=== PATIENT | female | born 2000 | race Caucasian/White ===

== ENCOUNTER 2023-04-09 02:28 | Emergency (ER) | payer SELFPAY ==
[~2023-04-09] VITALS: Ht 154.9 cm; Wt 59.0 kg
[2023-04-09 04:05] LABS: APPEARANCE,URINE CLEAR (CLEAR); BILIRUBIN,URINE NEGATIVE (NEGATIVE); BLOOD, URINE 3+ Ery/uL (NEGATIVE); COLOR,URINE YELLOW (YELLOW); KETONES,URINE 3+ mg/dL (NEGATIVE); LEUKOCYTE ESTERASE ,URINE TRACE (NEGATIVE); NITRITE, URINE NEGATIVE (NEGATIVE); PREGNANCY TEST URINE QUAL NEGATIVE (NEGATIVE); PROTEIN,URINE NEGATIVE (NEGATIVE); UGLUCOSE NEGATIVE (NEGATIVE); UROBILINOGEN,URINE 0.2 EU/dL (0.2)
[2023-04-09 04:06] LABS: ADD URINE CULTURE NO; BACTERIA,URINE Rare /HPF (None Seen); SQUAMOUS EPITHELIAL CELL,UR Few /HPF (None Seen)
[2023-04-09] MEDS ORDERED: NITR100C6 PO (04:15)
[2023-04-09] MEDS ORDERED: NITROFURANTOIN/MONOHYDRATE MACROCRYSTALS 100 MG CAPSULE ONE (04:15)
[2023-04-09] MEDS ORDERED: NITROFURANTOIN/MONOHYDRATE MACROCRYSTALS 100 MG CAPSULE PO ONE (04:30)
[2023-04-09 04:33] VITALS: BP 121/74; TEMP 98.4; O2SAT 100
== END 2023-04-09 04:34 | disposition home or self-care (01) ==
LOC: ER 02:39
DX: N39.0 Urinary tract infection, site not specified (principal); Z79.899 Other long term (current) drug therapy
CPT/HCPCS: 81001; 84703-TC

== ENCOUNTER 2023-07-04 23:51 | Emergency (ER) | payer MEDICAID ==
[~2023-07-04] VITALS: Ht 154.9 cm; Wt 61.2 kg
[~2023-07-04 23:51] MED LIST: NITR100C6 PO
[2023-07-05 00:59] VITALS: BP 118/72; TEMP 97.2
[2023-07-05] MEDS ORDERED: ACETAMINOPHEN ES 500 MG TABLET PO ONE (01:30)
[2023-07-05] MEDS ORDERED: ACETAMINOPHEN ES 500 MG TABLET ONE (01:33)
[2023-07-05 02:13] VITALS: O2SAT 98
== END 2023-07-05 02:15 | disposition home or self-care (01) ==
LOC: ER 23:52
DX: B34.9 Viral infection, unspecified (principal); Z20.822 Contact with and (suspected) exposure to COVID-19
CPT/HCPCS: 99283; 87426; C9803